=== PATIENT | female | born 1975 | race Caucasian/White ===

== ENCOUNTER 2021-04-12 08:21 | Outpatient (CLI) | payer OTHER | END 2021-04-12 08:36 | disposition home or self-care (01) | LOC: TOM 08:21 | PROVIDERS: ATTEND Internal Medicine Gastroenterology | DX: K52.89 Other specified noninfective gastroenteritis and colitis (principal); K76.89 Other specified diseases of liver; Q44.6 Cystic disease of liver; R10.84 Generalized abdominal pain ==

== ENCOUNTER 2021-05-03 11:26 | Emergency (ER) | payer OTHER ==
[~2021-05-03] VITALS: Ht 162.6 cm; Wt 72.6 kg
[2021-05-03] MEDS ORDERED: ENDOMETRIN100 MG VG (11:48)
== END 2021-05-03 19:12 | disposition home or self-care (01) ==
LOC: ER 11:26
DX: J06.9 Acute upper respiratory infection, unspecified (principal); R10.12 Left upper quadrant pain; N39.0 Urinary tract infection, site not specified; D35.02 Benign neoplasm of left adrenal gland

== ENCOUNTER 2021-06-16 15:00 | Emergency (ER) | payer OTHER ==
[~2021-06-16] VITALS: Ht 162.6 cm; Wt 70.3 kg
[~2021-06-16 15:00] MED LIST: ENDOMETRIN100 MG VG
[2021-06-16] MEDS ORDERED: CIPRO500 MG PO (20:44)
== END 2021-06-16 21:13 | disposition home or self-care (01) ==
LOC: ER 15:00
DX: K57.92 Diverticulitis of intestine, part unspecified, without perforation or abscess without bleeding (principal); K52.9 Noninfective gastroenteritis and colitis, unspecified; J45.998 Other asthma

== ENCOUNTER 2021-12-06 07:23 | Outpatient (CLI) | payer OTHER ==
[~2021-12-06 07:23] MED LIST changes: +CIPRO500 MG PO
== END 2021-12-06 07:34 | disposition home or self-care (01) ==
LOC: TOM 07:23
PROVIDERS: ATTEND Urology
DX: D35.02 Benign neoplasm of left adrenal gland (principal)

== ENCOUNTER 2022-03-09 10:34 | Outpatient (CLI) | payer OTHER | END 2022-03-09 10:42 | disposition home or self-care (01) | LOC: MAMO-SONO 10:34 | PROVIDERS: ATTEND Student in an Organized Health Care Education/Training Program | DX: N60.11 Diffuse cystic mastopathy of right breast (principal); N60.12 Diffuse cystic mastopathy of left breast ==

== ENCOUNTER 2022-04-19 07:20 | Outpatient (CLI) | payer OTHER | END 2022-04-19 07:38 | disposition home or self-care (01) | LOC: MRI 07:20 | DX: D35.02 Benign neoplasm of left adrenal gland (principal) ==

== ENCOUNTER 2022-07-27 12:28 | Outpatient (CLI) | payer OTHER | END 2022-07-27 12:35 | disposition home or self-care (01) | LOC: RAD 12:28 | PROVIDERS: ATTEND Internal Medicine | DX: M54.2 Cervicalgia (principal); S02.2XXA Fracture of nasal bones, initial encounter for closed fracture ==

== ENCOUNTER → 2022-07-27 | Outpatient (CLI) | payer OTHER | END | disposition home or self-care (01) | LOC: LAB 16:35 | PROVIDERS: ATTEND Internal Medicine Gastroenterology | DX: J00 Acute nasopharyngitis [common cold] (principal); J20.1 Acute bronchitis due to Hemophilus influenzae ==

== ENCOUNTER 2022-08-24 12:10 | Outpatient (CLI) | payer OTHER | END 2022-08-24 12:27 | disposition home or self-care (01) | LOC: LAB 12:10 | PROVIDERS: ATTEND Internal Medicine Gastroenterology | DX: R31.1 Benign essential microscopic hematuria (principal); N30.00 Acute cystitis without hematuria ==

== ENCOUNTER 2022-11-07 13:40 | Outpatient (CLI) | payer OTHER | END 2022-11-07 14:22 | disposition home or self-care (01) | LOC: RAD 13:40 | PROVIDERS: ATTEND Internal Medicine | DX: M41.25 Other idiopathic scoliosis, thoracolumbar region (principal) ==

== ENCOUNTER 2023-04-03 12:27 | Outpatient (CLI) | payer OTHER | END 2023-04-03 12:28 | disposition home or self-care (01) | LOC: NUCLEAR 12:27 | PROVIDERS: ATTEND Obstetrics & Gynecology | DX: M81.0 Age-related osteoporosis without current pathological fracture (principal) ==

== ENCOUNTER 2023-06-26 09:06 | Outpatient (CLI) | payer OTHER | END 2023-06-26 09:23 | disposition home or self-care (01) | LOC: RAD 09:06 | PROVIDERS: ATTEND Obstetrics & Gynecology | DX: M62.830 Muscle spasm of back (principal); M41.34 Thoracogenic scoliosis, thoracic region; M41.9 Scoliosis, unspecified; Z88.6 Allergy status to analgesic agent ==

== ENCOUNTER 2023-09-19 10:54 | Outpatient (CLI) | payer OTHER | END 2023-09-19 10:58 | disposition home or self-care (01) | LOC: RAD 10:54 | PROVIDERS: ATTEND Internal Medicine | DX: M25.561 Pain in right knee (principal) ==

== ENCOUNTER 2024-05-23 14:12 | Outpatient (CLI) | payer OTHER | END 2024-05-23 14:28 | disposition home or self-care (01) | LOC: SONOGRAMA 14:12 | DX: N95.0 Postmenopausal bleeding (principal) ==

== ENCOUNTER 2024-09-13 07:39 | Outpatient (CLI) | payer OTHER | END 2024-09-13 07:48 | disposition home or self-care (01) | LOC: SONOGRAMA 07:39 | DX: R10.9 Unspecified abdominal pain (principal) ==

== ENCOUNTER 2024-10-07 07:08 | Outpatient (CLI) | payer OTHER | END 2024-10-07 14:04 | disposition home or self-care (01) | LOC: TOM 07:08 | PROVIDERS: ATTEND Internal Medicine Gastroenterology | DX: R10.10 Upper abdominal pain, unspecified (principal); R10.30 Lower abdominal pain, unspecified; K76.0 Fatty (change of) liver, not elsewhere classified ==

== ENCOUNTER 2025-05-02 11:09 | Outpatient (CLI) | payer OTHER | END 2025-05-02 11:11 | disposition home or self-care (01) | LOC: NUCLEAR 11:09 | PROVIDERS: ATTEND Internal Medicine Rheumatology | DX: M81.0 Age-related osteoporosis without current pathological fracture (principal) ==

== ENCOUNTER 2025-08-12 10:56 | Outpatient (CLI) | payer OTHER | END 2025-08-12 11:07 | disposition home or self-care (01) | LOC: RAD 10:56 | PROVIDERS: ATTEND Internal Medicine | DX: R06.9 Unspecified abnormalities of breathing (principal) ==